=== PATIENT | female | born 1965 | race Caucasian/White ===

== ENCOUNTER 2019-04-18 15:53 | Emergency (ER) | payer OTHER, SELFPAY ==
[2019-04-18 15:55] VITALS: BP 150/77; PULSE 81; RESP 24; TEMP 36.6; O2SAT 99
[2019-04-18 16:44] LABS: Influenza A - CEPHEID Flu A NEGATIVE (NEGATIVE); Influenza B - CEPHEID Flu B NEGATIVE (NEGATIVE)
[2019-04-18] MEDS: AMOXICILLIN 250 MG CAPSULE 1000 MG PO (18:01)
--- NOTE | 2019-04-18 18:40 | ED_ITS ---
HPI - Fever <DEREK Griffith - Last Filed: 04/18/19 18:44> General Chief Complaint: Fever Stated Complaint: fever,achey,nauseous Time Seen by Provider: 04/18/19 17:28 Source: patient Mode of arrival: Ambulatory Limitations: no limitations History of Present Illness HPI Narrative: The patient is a 53-year-old female nonsmoker who denies pertinent medical history presents with a chief complaint of fever sore throat and body aches that started yesterday. 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 She has not taken anything at home to feel better. She is able to eat and drink. She complains of slight nausea, no vomiting. No abdominal pain. Does state that she had 1 episode of vomiting a few weeks ago. She denies cough, denies congestion, denies ear pain. Related Data Previous Rx's Medication Instructions Recorded amoxicillin 875 mg PO BID #20 tab 04/18/19 Review of Systems <DEREK Griffith - Last Filed: 04/18/19 18:44> Review of Systems Narrative: GENERAL: See HPI HEENT: See HPI RESPIRATORY: Denies dyspnea, cough, wheezing, hemoptysis, sputum. CARDIOVASCULAR: Denies chest pain, palpitations, orthopnea, edema, GASTROINTESTINAL: See HPI : Denies dysuria, frequency, incontinence, hematuria, urinary retention. MUSCULOSKELETAL: denies weakness, joint pain, or bony pain SKIN: Denies rash, skin lesions, or other NEUROLOGIC: Denies weakness, headache, numbness, change in speech, confusion, seizures, incoordination. PSYCHIATRIC: No concerning psychosocial issues. 12 point review of systems is negative except for those stated above Patient History <DEREK Griffith - Last Filed: 04/18/19 18:44> Social History Smoking Status: Never smoker Smoking Status: Never smoker Exam <DEREK Griffith - Last Filed: 04/18/19 18:44> Narrative Exam Narrative: GENERAL: This is a well-nourished, well-developed patient, in no acute distress wearing a mask HEAD: Atraumatic. Normocephalic. No temporal or scalp tenderness. EYES: Pupils equal round and reactive. Extraocular motions intact. No scleral icterus. No injection or drainage. ENT: Nose without bleeding, purulent drainage or septal hematoma. Throat with erythema, 1+ tonsillar hypertrophy and bilateral exudate. Uvula midline. Airway patent. Bilateral TMs pearly tobias. NECK: Trachea midline. No JVD or lymphadenopathy. Supple, nontender, no meningeal signs. CARDIOVASCULAR: Regular rate and rhythm RESPIRATORY: Clear to auscultation. Breath sounds equal bilaterally. No wheezes, rales, or rhonchi. No cough. No increased respiratory effort. No accessory muscle use. GASTROINTESTINAL: Abdomen soft, non-tender, nondistended. No hepato- splenomegaly, or palpable masses. No guarding. EXTREMITIES: No clubbing, cyanosis, or edema. No joint tenderness, effusion, or edema noted. Using all extremities equally BACK: Nontender without deformity or crepitance. No flank tenderness. NEURO: AOx3. SKIN: No rash or erythema on visible skin Initial Vital Signs Initial Vital Signs: Vital Signs Temperature 97.8 F 04/18/19 15:55 Pulse Rate 81 04/18/19 15:55 Respiratory Rate 24 04/18/19 15:55 Blood Pressure 150/77 H 04/18/19 15:55 Pulse Oximetry 99 04/18/19 15:55 <DO Komal Kruger Last Filed: 04/18/19 20:12> Initial Vital Signs Initial Vital Signs: Vital Signs Temperature 97.8 F 04/18/19 15:55 Pulse Rate 81 04/18/19 15:55 Respiratory Rate 24 04/18/19 15:55 Blood Pressure 150/77 H 04/18/19 15:55 Pulse Oximetry 99 04/18/19 15:55 Course <DEREK Griffith - Last Filed: 04/18/19 18:44> Orders Ordered: ED Orders 04/18/19 16:00 Influenza A & B (PCR) Stat Discontinued Medications Amoxicillin (Trimox) 1,000 mg PO NOW ONE Stop: 04/18/19 17:37 Last Admin: 04/18/19 18:01 Dose: 1,000 mg Documented by: JOSE Vital Signs Vital signs: Vital Signs - 8 hr 04/18/19 15:55 Temperature 97.8 F Pulse Rate 81 Respiratory Rate 24 Blood Pressure 150/77 H Pulse Oximetry 99 <Isac Pedraza DO - Last Filed: 04/18/19 20:12> Orders Ordered: ED Orders 04/18/19 16:00 Influenza A & B (PCR) Stat Discontinued Medications Amoxicillin (Trimox) 1,000 mg PO NOW ONE Stop: 04/18/19 17:37 Last Admin: 04/18/19 18:01 Dose: 1,000 mg Documented by: JOSE Vital Signs Vital signs: Vital Signs - 8 hr 04/18/19 15:55 Temperature 97.8 F Pulse Rate 81 Respiratory Rate 24 Blood Pressure 150/77 H Pulse Oximetry 99 MDM - Fever <Andreinatashia ClementeDEREK mora - Last Filed: 04/18/19 18:44> Lab Data Labs: Lab Results 04/18/19 Range/Units 16:00 Influenza A (RT-PCR) Flu a negative (NEGATIVE) Influenza B (RT-PCR) Flu b negative (NEGATIVE) Point of Care Testing Rapid Strep A Positive MDM Narrative Medical decision making narrative: The patient is a 53-year-old female who presents with a chief complaint of sore throat muscle aches and fever. She shahida ts negative for influenza, test positive for strep. Initiated treatment with amoxicillin. Work note given. Discussed at length continued [id number] measures, as well as follow-up with primary care provider coming back to the emergency department for any acute concerns. Patient has no questions or concerns upon discharge and states understanding of return precautions as well as follow-up care. <Isac Pedraza DO - Last Filed: 04/18/19 20:12> Lab Data Labs: Lab Results 04/18/19 Range/Units 16:00 Influenza A (RT-PCR) Flu a negative (NEGATIVE) Influenza B (RT-PCR) Flu b negative (NEGATIVE) Point of Care Testing Rapid Strep A Positive Discharge Plan Departure Patient Disposition: Home Clinical Impression: Strep throat Discharge Date/Time: 04/18/19 18:55 Instructions: DI for Strep Throat Activity Restrictions/Additional Instructions: As discussed, your influenza test came back negative. Your strep came back positive. I sent a prescription of amoxicillin to [facility] in [place]. Please take your antibiotics with probiotic or yogurt. We have given you your 1st dose of antibiotics in the emergency department. Please follow-up with primary care provider next few days. Please come back to emergency department for any acute concerns Prescriptions: New amoxicillin 875 mg tablet 875 mg PO BID Qty: 20 RF: 0 Referrals: Mauro Sandoval MD [Primary Care Provider] - Stand Alone Forms: Work Release Note
== END 2019-04-18 18:55 | disposition home or self-care (01) ==
PROVIDERS: Emergency Medicine; Emergency Provider Nurse Practitioner Family; Family Provider Family Medicine; PCP Family Medicine
DX: J02.0 Streptococcal pharyngitis (principal)
CPT/HCPCS: 87502; 87880; 99283

== ENCOUNTER → 2020-03-11 14:01 | Outpatient (CLI) | payer OTHER, SELFPAY ==
--- NOTE | 2020-03-11 14:04 | DI.MG.S_ITS ---
BILATERAL DIGITAL SCREENING MAMMOGRAM 3D/2D WITH CAD: 03/11/2020 CLINICAL: Routine screening. Comparison is made to exams dated: 05/27/2017 mammogram, 05/25/2018 mammogram - [facility], and 02/15/2016 mammogram - [facility]. The tissue of both breasts is heterogeneously dense. This may lower the sensitivity of mammography. Current study was also evaluated with a Computer Aided Detection (CAD) system. There is a benign cyst in the right breast. There also is a benign lymph node in the left breast. No significant masses, calcifications, or other findings are seen in either breast. IMPRESSION: BENIGN There is no mammographic evidence of malignancy. A 1 year screening mammogram is recommended. This exam was interpreted at Station ID: [id number]. NOTE: For mammograms, a report in lay terms will be sent to the patient. Approximately 15% of breast malignancies will not be visualized mammographically. In the management of a palpable breast mass, a negative mammogram must not discourage biopsy of a clinically suspicious lesion. Electronically Signed By: Hayes garcia/serena:03/13/2020 08:43:14 letter sent: Normal Exam ACR BI-RADS Category 2: Benign Finding(s) 3342F
== END ==
PROVIDERS: Family Provider Family Medicine; PCP Family Medicine; Referring Provider Family Medicine; Visit Provider Family Medicine
DX: Z12.31 Encounter for screening mammogram for malignant neoplasm of breast (principal)
CPT/HCPCS: 77063; 77067

== ENCOUNTER 2022-08-30 16:58 | Emergency (ER) | payer OTHER, SELFPAY ==
[2022-08-30] VITALS (7 sets, daily range): BP systolic 115–140; BP diastolic 55–84; PULSE 59–71; RESP 16–20; TEMP 37.1; O2SAT 96–99; BMI 29.9
[2022-08-30 17:42] LABS: Add Manual Diff / Slide Review NO; Basophils Absolute Auto 100 /uL (0-100); Basophils Percent Auto 0.8 % (0-2); Eosinophils Absolute Auto 300 /uL (0-450); Eosinophils Percent Auto 3.6 % (2-4); Hematocrit 41.2 % (36-46); Hemoglobin 14.2 g/dL (12.0-16.0); Lymphocytes Absolute Auto 2400 /uL (1100-4500); Lymphocytes Percent Auto 31.3 % (25-40); Mean Corpuscular HGB Conc 34.4 % (30-36); Mean Corpuscular Hemoglobin 30.9 PG (26-34); Mean Corpuscular Volume 89.8 fL (80-100); Monocytes Absolute Auto 700 /uL (0-900); Neutrophils Absolute Auto 4200 /uL (1500-7000); Neutrophils Percent Auto 55.3 % (50-75); Platelet Count 244 X10^3/uL (150-400); Red Blood Cell Count 4.59 X10^6/uL (4.0-5.2); Red Cell Distribution Width 12.8 % (11.6-14.8); White Blood Cell Count 7.5 X10^3/uL (4.5-11.0)
--- NOTE | 2022-08-30 18:05 | ED_ITS ---
HPI - General Adult General Chief complaint: Abdominal Pain Stated complaint: LRQ pain Time Seen by Provider: 08/30/22 17:56 Source: patient Mode of arrival: Ambulatory History of Present Illness HPI narrative: Patient is a 56-year-old female who is here for evaluation of right lower quadrant abdominal pain. Patient states that it started this afternoon which she was out walking. Earlier in the day she did have an adjustment by a chir opractor. That did not seem to cause any issues. She was out walking and had a fairly sudden onset of right lower quadrant/right adnexa pain. No diarrhea. No fevers. No vomiting. No urinary symptoms. Has not tried anything for the symptoms. She actually thought that the symptoms were improving while she was here in the ER however when she got up and walked around they came back again. Related Data Home Medications Medication Instructions Recorded Confirmed buspirone 5 mg tablet 2.5 mg PO BID PRN 07/12/20 07/12/20 Allergies Allergy/AdvReac Type Severity Reaction Status Date / Time hydrocodone [From Vicodin] AdvReac Intermediate Nausea Verified 08/30/22 17:22 Review of Systems Constitutional Constitutional: Reports system reviewed and no additional complaints, except as documented Gastrointestinal Gastrointestinal: Reports system reviewed and no additional complaints, except as documented Genitourinary Genitourinary: Reports system reviewed and no additional complaints, except as documented Integumentary/Breasts Skin/Breast: Reports system reviewed and no additional complaints, except as documented Patient History Medical History Bilateral bunions Seborrheic keratosis Vision disorder Surgical History (Updated 08/16/20 @ 20:01 by Raven Marley) Anesthesia History of eye surgery Status post lens implant Family History (Updated 08/16/20 @ 20:02 by Raven Marley) Father Cancer Hypertension Mother Mental health problem Social History Smoking Status: Never smoker second hand exposure: No alcohol intake: never substance use type: does not use Smoking Status: Never smoker alcohol intake frequency: holidays/special occasions only Substance Use Type: does not use Exam Initial Vital Signs Initial Vital Signs: Vital Signs Temperature 98.7 F 08/30/22 17:09 Pulse Rate 71 08/30/22 17:09 Respiratory Rate 20 08/30/22 17:09 Blood Pressure 137/62 08/30/22 17:09 Pulse Oximetry 96 08/30/22 17:09 Oxygen Delivery Method Room Air 08/30/22 17:09 Resp Effort & Inspection: normal respiratory effort Auscultation: clear to auscultation bilaterally Cardio Rate: regular rate Rhythm: regular rhythm GI Inspection: normal to inspection Palpation: soft, No firm, No guarding and tender (Right lower quadrant) Skin General: no rashes or lesions noted Neuro General: patient alert, patient awake, patient oriented x3 and moves all extremities Course Orders Ordered: ED Orders 08/30/22 17:16 EKG-12 Lead Stat 08/30/22 17:20 Complete Blood Count AUTO DIFF Stat Comprehensive Metabolic Panel Stat Lipase Stat 08/30/22 18:06 CT abdomen pelvis w con Stat Discontinued Medications Ondansetron HCl (Ondansetron 4 Mg Odt) 4 mg PO NOW PRN PRN Reason: Nausea And Vomiting Ondansetron HCl (Ondansetron 4 Mg/2 Ml Inj) 4 mg IV NOW PRN PRN Reason: Nausea And Vomiting Vital Signs Vital signs: Vital Signs - 8 hr 08/30/22 17:09 08/30/22 17:54 08/30/22 17:54 Temperature 98.7 F Pulse Rate 71 62 Respiratory Rate 20 Blood Pressure 137/62 140/84 Pulse Oximetry 96 98 Oxygen Delivery Method Room Air 08/30/22 18:00 08/30/22 18:01 08/30/22 18:01 Temperature Pulse Rate 60 66 Respiratory Rate 16 Blood Pressure 115/55 L Pulse Oximetry 98 98 Oxygen Delivery Method Room Air 08/30/22 18:30 08/30/22 18:30 08/30/22 18:44 Temperature Pulse Rate 63 Respiratory Rate Blood Pressure 118/64 124/76 Pulse Oximetry 98 Oxygen Delivery Method 08/30/22 18:44 08/30/22 19:00 08/30/22 19:00 Temperature Pulse Rate 65 59 L Respiratory Rate 18 Blood Pressure 128/73 Pulse Oximetry 99 97 Oxygen Delivery Method Room Air Medical Decision Making Lab Data Lab results reviewed: Yes I reviewed the patient's lab results. 08/30/22 17:20 08/30/22 17:20 Labs: Lab Results 08/30/22 08/30/22 Range/Units 17:20 17:20 WBC 7.5 (4.5-11.0) X10^3/uL RBC 4.59 (4.0-5.2) X10^6/uL Hgb 14.2 (12.0-16.0) g/dL Hct 41.2 (36-46) % MCV 89.8 (80-100) fL MCH 30.9 (26-34) PG MCHC 34.4 (30-36) % RDW 12.8 (11.6-14.8) % Plt Count 244 (150-400) X10^3/uL Neut % (Auto) 55.3 (50-75) % Lymph % (Auto) 31.3 (25-40) % Carson % (Auto) 9.0 (3-14) % Eos % (Auto) 3.6 (2-4) % Baso % (Auto) 0.8 (0-2) % Neut # (Auto) 4200 (4139-3013) /uL Lymph # (Auto) 2400 (9781-8498) /uL Carson # (Auto) 700 (0-900) /uL Eos # (Auto) 300 (0-450) /uL Baso # (Auto) 100 (0-100) /uL Sodium 139 (137-145) mmol/L Potassium 4.4 (3.4-5.1) mmol/L Chloride 107 (98-107) mmol/L Carbon Dioxide 26 (22-32) mmol/L BUN 27 H (7-17) mg/dL Creatinine 0.64 (0.52-1.04) mg/dL Estimated GFR > 60 (>60) mL/min BUN/Creatinine Ratio 42.2 H (6-22) Glucose 109 H (70-100) mg/dL Calcium 9.0 (8.4-10.2) mg/dL Total Bilirubin 0.5 (0.2-1.3) mg/dL AST 27 (14-36) IU/L ALT 13 (<35) IU/L Alkaline Phosphatase 80 (38-126) U/L Total Protein 7.6 (6.3-8.2) g/dL Albumin 4.3 (3.5-5.0) g/dL Globulin 3.3 (1.7-4.1) g/dL Albumin/Globulin Ratio 1.3 (1.0-2.8) Lipase 97 (23-300) U/L Imaging Data CT scan - abdomen/pelvis: Radiologist's Impression: PROCEDURE:? CT ABDOMEN PELVIS W CON ? INDICATIONS:? RLQ pain eval for appy ? TECHNIQUE:? After the administration of intravenous contrast, axial sections acquired from the lung bases to the pubic symphysis.? Coronal and sagittal reformats were performed.? For radiation dose reduction, the following was used:? automated exposure control, adjustment of mA and/or kV according to patient size.? ? COMPARISON:? [facility], , BREAST UNILATERAL LIMITED, 03/05/2016, 15:13. ? FINDINGS:? Image quality:? Excellent.? ? Lung bases:? Bibasilar atelectasis.? Small hiatal hernia.? Presumed right breast cyst as previously evaluated in 2017. Heart:? Heart size is normal. ? ABDOMEN: Liver:? There are a few scattered subcentimeter hepatic hypodensities which are too small to accurately characterize but likely represent cysts versus hemangiomas. Gallbladder:? Unremarkable.? ? Biliary ducts:? Unremarkable.? ? Pancreas: Homogeneous enhancement without focal lesions or pancreatic ductal dilatation.? No peripancreatic inflammation or organized fluid collections. Spleen:? No splenomegaly Adrenal Glands:? Unremarkable.? ? Kidneys and Ureters: Kidneys are symmetric in size and enhancement, and there is no obstructive uropathy.? No perinephric inflammatory changes. Ureters are normal in course and caliber.? Multiple bilateral renal hypodensities likely representing cysts. ? Stomach and Bowel:? Stomach, small bowel loops, and colon are unremarkable.? A few scant colonic diverticula without evidence for acute diverticulitis.? Normal appendix. Peritoneum:? No abnormal intraperitoneal fluid.? No free air.? ? Ventral Wall: ? No hernias.? Abdominal Nodes:? No retroperitoneal or mesenteric adenopathy by size criteria.? Vessels:? Aorta and inferior vena cava are normal in size.? ? PELVIS: Pelvic Organs:? Unremarkable.? ? Bladder:? Unremarkable.? ? Pelvic Nodes: No enlarged lymph nodes.? Miscellaneous: No hernias are seen. ? ? ? Bones:? Unremarkable.? ? Multilevel spondylosis.? No acute compression fracture. ? ? IMPRESSION:? ? 1. CT abdomen and pelvis without acute abnormalities. ? 2. Scant colonic diverticulosis without acute diverticulitis. ? 3. Normal appendix. ? 4. Scattered hepatic and renal hypodensities incompletely characterized but likely representing cysts. ? 5. Presumed right lateral breast cyst.? A similar cyst was described on comparison ultrasound dated March 05, 2016? ECG Data Attestation: I personally reviewed and interpreted this ECG as follows: Interpretation: Sinus rhythm Ventricular rate is 60 Normal axis Normal QRS Normal QTC No ST T wave changes MDM Narrative Medical decision making narrative: Patient's labs are unremarkable. She does have a benign exam. We did discuss that this potentially could be muscular in origin however given the location there was also concern about appendicitis. After this discussion we did opt to have a CT performed. Prior to the results of the CT scan the patient stated that she wanted to leave. She understands that we do not have the results of the CT scan back. She signed Against Medical Advice paperwork and was given return precautions. Discharge Plan Departure Patient Disposition: Left Against Medical Advice Clinical Impression: Abdominal pain Prescriptions: No Action buspirone 5 mg tablet 2.5 mg PO BID PRN Stand Alone Forms: Patient Portal/API, Against Medical Advice
--- NOTE | 2022-08-30 18:06 | DI.CT.S_ITS ---
PROCEDURE: CT ABDOMEN PELVIS W CON INDICATIONS: RLQ pain eval for appy TECHNIQUE: After the administration of intravenous contrast, axial sections acquired from the lung bases to the pubic symphysis. Coronal and sagittal reformats were performed. For radiation dose reduction, the following was used: automated exposure control, adjustment of mA and/or kV according to patient size. COMPARISON: [facility], , BREAST UNILATERAL LIMITED, 03/05/2016, 15:13. FINDINGS: Image quality: Excellent. Lung bases: Bibasilar atelectasis. Small hiatal hernia. Presumed right breast cyst as previously evaluated in 2017. Heart: Heart size is normal. ABDOMEN: Liver: There are a few scattered subcentimeter hepatic hypodensities which are too small to accurately characterize but likely represent cysts versus hemangiomas. Gallbladder: Unremarkable. Biliary ducts: Unremarkable. Pancreas: Homogeneous enhancement without focal lesions or pancreatic ductal dilatation. No peripancreatic inflammation or organized fluid collections. Spleen: No splenomegaly Adrenal Glands: Unremarkable. Kidneys and Ureters: Kidneys are symmetric in size and enhancement, and there is no obstructive uropathy. No perinephric inflammatory changes. Ureters are normal in course and caliber. Multiple bilateral renal hypodensities likely representing cysts. Stomach and Bowel: Stomach, small bowel loops, and colon are unremarkable. A few scant colonic diverticula without evidence for acute diverticulitis. Normal appendix. Peritoneum: No abnormal intraperitoneal fluid. No free air. Ventral Wall: No hernias. Abdominal Nodes: No retroperitoneal or mesenteric adenopathy by size criteria. Vessels: Aorta and inferior vena cava are normal in size. PELVIS: Pelvic Organs: Unremarkable. Bladder: Unremarkable. Pelvic Nodes: No enlarged lymph nodes. Miscellaneous: No hernias are seen. Bones: Unremarkable. Multilevel spondylosis. No acute compression fracture. IMPRESSION: 1. CT abdomen and pelvis without acute abnormalities. 2. Scant colonic diverticulosis without acute diverticulitis. 3. Normal appendix. 4. Scattered hepatic and renal hypodensities incompletely characterized but likely representing cysts. 5. Presumed right lateral breast cyst. A similar cyst was described on comparison ultrasound dated March 05, 2016 Dictated by: Hayes Gaming M.D. on 08/30/2022 at 19:41 Approved by: Hayes Gaming M.D. on 08/30/2022 at 19:48
[2022-08-30 18:13] LABS: Alanine Aminotransferase 13 IU/L (<35); Albumin 4.3 g/dL (3.5-5.0); Albumin Globulin Ratio 1.3 (1.0-2.8); Alkaline Phosphatase 80 U/L (38-126); Aspartate Aminotransferase 27 IU/L (14-36); BUN Creatinine Ratio 42.2 (6-22); Bilirubin Total 0.5 mg/dL (0.2-1.3); Blood Urea Nitrogen 27 mg/dL (7-17); Carbon Dioxide 26 mmol/L (22-32); Chloride 107 mmol/L (98-107); Estimated Glomerular Filt Rate > 60 mL/min (>60); Globulin 3.3 g/dL (1.7-4.1); Glucose 109 mg/dL (70-100); Lipase 97 U/L (23-300); Sodium 139 mmol/L (137-145); Total Protein 7.6 g/dL (6.3-8.2)
[2022-08-30 18:23] LABS: HEMOLYSIS 73 (0-50); Potassium 4.4 mmol/L (3.4-5.1)
== END 2022-08-30 19:26 | disposition left against medical advice (07) ==
PROVIDERS: Emergency Medicine; Emergency Provider Emergency Medicine; Family Provider Family Medicine; PCP Family Medicine
DX: R10.31 Right lower quadrant pain (principal)
CPT/HCPCS: 36415; 74177; 80053; 83690; 85025; 93005; 93010; 99284; Q9967

== ENCOUNTER 2024-05-27 10:08 | Emergency (ER) | payer OTHER, SELFPAY ==
[2024-05-27 10:15] VITALS: PULSE 71; O2SAT 98
[2024-05-27 10:16] VITALS: BP 138/68; PULSE 67; O2SAT 98
[2024-05-27 10:20] VITALS: BP 138/68; PULSE 63; RESP 14; TEMP 36.8; O2SAT 98; BMI 30.2
[2024-05-27] MEDS: KETOROLAC 30 MG/ML VIAL 15 MG IV (11:56)
[2024-05-27 12:11] LABS: Add Manual Diff / Slide Review NO; Basophils Absolute Auto 0 /uL (0-100); Basophils Percent Auto 0.8 % (0-2); Eosinophils Absolute Auto 200 /uL (0-450); Eosinophils Percent Auto 3.2 % (2-4); Hemoglobin 13.6 g/dL (12.0-16.0); Lymphocytes Absolute Auto 1700 /uL (1100-4500); Lymphocytes Percent Auto 27.5 % (25-40); Mean Corpuscular HGB Conc 33.9 % (30-36); Mean Corpuscular Hemoglobin 30.9 PG (26-34); Monocytes Absolute Auto 500 /uL (0-900); Monocytes Percent Auto 8.4 % (3-14); Neutrophils Absolute Auto 3700 /uL (1500-7000); Neutrophils Percent Auto 60.1 % (50-75); Platelet Count 261 X10^3/uL (150-400); White Blood Cell Count 6.2 X10^3/uL (4.5-11.0)
[2024-05-27 12:22] LABS: Alanine Aminotransferase 14 IU/L (<35); Albumin Globulin Ratio 1.5 (1.0-2.8); Alkaline Phosphatase 88 U/L (38-126); Aspartate Aminotransferase 23 IU/L (14-36); BUN Creatinine Ratio 17.9 (6-22); Bilirubin Total 0.7 mg/dL (0.2-1.3); Blood Urea Nitrogen 12 mg/dL (7-17); Calcium 9.1 mg/dL (8.4-10.2); Carbon Dioxide 25 mmol/L (22-32); Chloride 107 mmol/L (98-107); Estimated Glomerular Filt Rate > 60 mL/min (>60); Globulin 2.6 g/dL (1.7-4.1); Glucose 88 mg/dL (70-100); HEMOLYSIS < 15 (0-50); Lipase 57 U/L (23-300); Potassium 4.2 mmol/L (3.4-5.1); Sodium 139 mmol/L (137-145); Total Protein 6.6 g/dL (6.3-8.2)
--- NOTE | 2024-05-27 12:44 | DI.US.S_ITS ---
PROCEDURE: US PELVIC COMPLETE INDICATIONS: left pain TECHNIQUE: Real-time scanning was performed of the pelvic organs, with image documentation. Additional endovaginal scanning was necessary due to incomplete visualization of the adnexal and endometrial structures by transabdominal scanning. COMPARISON: None. FINDINGS: Uterus: Uterus is anteverted and normal in size at 6.8 x 5.2 x 3.7 cm. The myometrium is homogeneous. 1.8 x 1.6 x 1.5 cm subserosal fibroid in posterior myometrium is seen. 5 x 4 x 4 mm calcification is noted within the myometrium.The endometrium measures 4 mm combined thickness. There is no endometrial mass or fluid. Small nabothian cysts are noted in vaginal canal. Ovaries: The right ovary measures 2.2 x 1.6 x 1.4 cm, with a calculated ovarian volume of 2.6 cc. The left ovary measures 2.5 x 1.6 x 2.0 cm, with a calculated ovarian volume of 4.2 cc. The ovaries have a normal sonographic appearance. Less than 12 follicles can be seen in each ovary. Normal arterial and venous flow is seen in bilateral ovaries on color Doppler images. No adnexal masses are seen. Other: No pathologic free abdominal or pelvic fluid. IMPRESSION: 1. Single uterine fibroid as above. No endometrial mass or fluid. Nonspecific tiny calcification within myometrium. 2. Normal appearing bilateral ovaries. No evidence of ovarian torsion. We strive to produce accurate, complete, and clear reports of imaging services. To assist us in improving patient care, this report was composed using standard report templates and voice recognition software. Therefore, it may contain abnormal punctuation, insertions and/or omissions. Occasional wrong-word or sound-alike substitutions may occur. Though we review the report and make efforts to correct it, we do recommend that the report be read carefully in proper context to recognize any text inaccuracies. Dictated by: Paul Aguilera M.D. on 05/27/2024 at 13:46 Approved by: Paul Aguilera M.D. on 05/27/2024 at 13:48
--- NOTE | 2024-05-27 14:00 | ED.ABDPAIN ---
HPI - Abdominal Pain General Chief Complaint: Abdominal Pain Stated Complaint: per patient , may Left ovarian cyst hard to walk Time Seen by Provider: 05/27/24 11:30 Source: patient Mode of arrival: Ambulatory History of Present Illness HPI narrative: Patient is a 58-year-old female without significant past medical history presenting today with ongoing right lower quadrant pain. She thought it might be an ovarian cyst but has no history of ovarian cyst. It woke up this morning around 5:00 a.m. she started having some mild back pain little bit of nausea. She was given Toradol prior to my evaluation reports that that has helped significantly. Related Data Home Medications Medication Instructions Recorded Confirmed buspirone 5 mg tablet 2.5 mg PO BID PRN 07/12/20 07/12/20 Allergies Allergy/AdvReac Type Severity Reaction Status Date / Time hydrocodone [From Vicodin] AdvReac Intermediate Nausea Verified 05/27/24 10:24 Patient History Medical History Bilateral bunions Seborrheic keratosis Vision disorder Surgical History (Updated 08/16/20 @ 20:01 by Raven Marley) Anesthesia Status post lens implant History of eye surgery Family History (Updated 08/16/20 @ 20:02 by Raven Marley) Father Cancer Hypertension Mother Mental health problem Social History Smoking Status: Unknown if ever smoked second hand exposure: No alcohol intake: never substance use type: does not use Smoking Status: Unknown if ever smoked alcohol intake frequency: holidays/special occasions only Exam Initial Vital Signs Initial Vital Signs: Vital Signs Pulse Rate 71 05/27/24 10:15 Pulse Oximetry 98 05/27/24 10:15 GENERAL: Alert 50-year-old female appears well nontoxic and in no acute distress. HEENT: Head atraumatic,EOMI, pupils reactive, face symmetric, moist mucous membranes CARDIOVASCULAR: Regular rate and rhythm without murmurs, rubs or gallops. RESPIRATORY: Breath sounds equal bilaterally, no wheezes rales or rhonchi. ABDOMEN: Soft, tender right lower quadrant no guarding no real : No CVA tenderness EXTREMITIES: Normal range of motion, no clubbing or edema. Neurovascularly intact NEUROLOGICAL: Alert and oriented x4.Normal gait and speech. Cranial nerves II through XII grossly intact. SKIN: Warm, dry, no laceration, no petechiae, no rashes or lesions. Course Orders Ordered: ED Orders 05/27/24 12:04 CBC Auto Diff [Complete Blood Count AUTO DIFF] Stat CMP [Comprehensive Metabolic Panel] Stat Lipase Stat 05/27/24 12:44 US pelvic complete Stat 05/27/24 14:00 CT abdomen pelvis w con Stat Discontinued Medications Ketorolac Tromethamine (Ketorolac 30 Mg/Ml Vial) 15 mg IV NOW ONE Stop: 05/27/24 11:31 Last Admin: 05/27/24 11:56 Dose: 15 mg Documented By: CHRISTINA Vital Signs Vital signs: Vital Signs - 8 hr 05/27/24 10:15 05/27/24 10:16 05/27/24 10:16 Temperature Pulse Rate 71 67 Respiratory Rate Blood Pressure 138/68 Pulse Oximetry 98 98 Oxygen Delivery Method 05/27/24 10:20 05/27/24 14:24 Temperature 98.3 F Pulse Rate 63 61 Respiratory Rate 14 16 Blood Pressure 138/68 130/65 Pulse Oximetry 98 98 Oxygen Delivery Method Room Air Room Air MDM - Abdominal Pain Lab Data 05/27/24 12:04 05/27/24 12:04 Labs: Lab Results 05/27/24 Range/Units 12:04 WBC 6.2 (4.5-11.0) X10^3/uL RBC 4.40 (4.0-5.2) X10^6/uL Hgb 13.6 (12.0-16.0) g/dL Hct 40.0 (36-46) % MCV 91.0 (80-100) fL MCH 30.9 (26-34) PG MCHC 33.9 (30-36) % RDW 13.0 (11.6-14.8) % Plt Count 261 (150-400) X10^3/uL Neut % (Auto) 60.1 (50-75) % Lymph % (Auto) 27.5 (25-40) % [place] % (Auto) 8.4 (3-14) % Eos % (Auto) 3.2 (2-4) % Baso % (Auto) 0.8 (0-2) % Neut # (Auto) 3700 (7636-8876) /uL Lymph # (Auto) 1700 (6991-1868) /uL [place] # (Auto) 500 (0-900) /uL Eos # (Auto) 200 (0-450) /uL Baso # (Auto) 0 (0-100) /uL Sodium 139 (137-145) mmol/L Potassium 4.2 (3.4-5.1) mmol/L Chloride 107 (98-107) mmol/L Carbon Dioxide 25 (22-32) mmol/L BUN 12 (7-17) mg/dL Creatinine 0.67 (0.52-1.04) mg/dL Estimated GFR > 60 (>60) mL/min BUN/Creatinine Ratio 17.9 (6-22) Glucose 88 (70-100) mg/dL Calcium 9.1 (8.4-10.2) mg/dL Total Bilirubin 0.7 (0.2-1.3) mg/dL AST 23 (14-36) IU/L ALT 14 (<35) IU/L Alkaline Phosphatase 88 (38-126) U/L Total Protein 6.6 (6.3-8.2) g/dL Albumin 4.0 (3.5-5.0) g/dL Globulin 2.6 (1.7-4.1) g/dL Albumin/Globulin Ratio 1.5 (1.0-2.8) Lipase 57 (23-300) U/L Point of care testing: Urine Dip Bedside Urine Glucose Negative Bedside Urine Bilirubin - Negative Bedside Urine Ketone - Negative Urine Specific [place] 1.010 Bedside Urine Occult Blood - Negative Bedside Urine pH 7.0 Bedside Urine Protein - Negative Bedside Urine Urobilinogen - Negative Bedside Urine Nitrite - Negative Bedside Urine Leukocytes - Negative Esterase Imaging Data US - SHINGLE TRIMMER: Radiologist's Impression: PROCEDURE: US PELVIC COMPLETE INDICATIONS: left pain TECHNIQUE: Real-time scanning was performed of the pelvic organs, with image documentation. Additional endovaginal scanning was necessary due to incomplete visualization of the adnexal and endometrial structures by transabdominal scanning. COMPARISON: None. FINDINGS: Uterus: Uterus is anteverted and normal in size at 6.8 x 5.2 x 3.7 cm. The myometrium is homogeneous. 1.8 x 1.6 x 1.5 cm subserosal fibroid in posterior myometrium is seen. 5 x 4 x 4 mm calcification is noted within the myometrium.The endometrium measures 4 mm combined thickness. There is no endometrial mass or fluid. Small nabothian cysts are noted in vaginal canal. Ovaries: The right ovary measures 2.2 x 1.6 x 1.4 cm, with a calculated ovarian volume of 2.6 cc. The left ovary measures 2.5 x 1.6 x 2.0 cm, with a calculated ovarian volume of 4.2 cc. The ovaries have a normal sonographic appearance. Less than 12 follicles can be seen in each ovary. Normal arterial and venous flow is seen in bilateral ovaries on color Doppler images. No adnexal masses are seen. Other: No pathologic free abdominal or pelvic fluid. IMPRESSION: 1. Single uterine fibroid as above. No endometrial mass or fluid. Nonspecific tiny calcification within myometrium. 2. Normal appearing bilateral ovaries. No evidence of ovarian torsion. We strive to produce accurate, complete, and clear reports of imaging services. To assist us in improving patient care, this report was composed using standard report templates and voice recognition software. Therefore, it may contain abnormal punctuation, insertions and/or omissions. Occasional wrong-word or sound-alike substitutions may occur. Though we review the report and make efforts to correct it, we do recommend that the report be read carefully in proper context to recognize any text inaccuracies. Dictated by: Paul Aguilera M.D. on 05/27/2024 at 13:46 CT scan - abdomen/pelvis: Radiologist's Impression: PROCEDURE: CT ABDOMEN PELVIS W CON INDICATIONS: right lower quad TECHNIQUE: After the administration of intravenous contrast, axial sections acquired from the lung bases to the pubic symphysis. Coronal and sagittal reformats were performed. For radiation dose reduction, the following was used: automated exposure control, adjustment of mA and/or kV according to patient size. COMPARISON: [facility], CT, CT ABDOMEN PELVIS W CON, 08/30/2022, 18:44. FINDINGS: Image quality: Diagnostic. Lower Chest: No significant findings. ABDOMEN: Liver: No solid mass. Numerous well-circumscribed hypodensities are again seen scattered in right and left hepatic lobes likely represent hepatic cysts. Gallbladder: No radiopaque gallstones or wall thickening. Biliary ducts: No biliary dilation. Pancreas: No ductal dilation. Spleen: Size is within normal limits. Adrenal Glands: No adrenal nodules. Kidneys and Ureters: No hydronephrosis. No solid mass. No complex renal cystic lesion which requires follow up. Stomach and Bowel: There is no bowel obstruction. [id number] fecal stasis in the colon is seen. Appendix is visualized in right lower quadrant and is within normal limits. No abscess collection. Peritoneum: No abnormal intraperitoneal fluid. No free air. Ventral Wall: No significant ventral hernia. Abdominal Nodes: No retroperitoneal or mesenteric adenopathy by size criteria. Vessels: Aorta and inferior vena cava are normal in size. PELVIS: Pelvic Organs: Unremarkable. Bladder: No bladder wall thickening, accounting for underdistention. Pelvic Nodes: No enlarged lymph nodes. Miscellaneous: No inguinal hernias are seen. Bones: No aggressive osseous abnormality. IMPRESSION: 1. Normal appendix. No bowel obstruction or abnormal bowel wall thickening. No free fluid or free air. 2. No obstructing renal stones or hydronephrosis. 3. Likely scattered hepatic cyst unchanged from prior study. Dictated by: Paul Aguilera M.D. on 05/27/2024 at 14:39 Approved by: Paul Aguilera M.D. on 05/27/2024 at 14:44 [facility] Narrative Medical decision making narrative: Patient is a healthy 58-year-old female presents today with sudden onset right lower quadrant pain. She was having some mild right flank pain as well a little bit of nausea. On exam she was tender in her right lower quadrant. Work has been reviewed overall reassuring. She was no leukocytosis no LEANDRO no electrolyte abnormality. Urinalysis does not show evidence of UTI or hematuria. Ultrasound showed a uterine fibroid but no evidence of ovarian torsion or right ovarian cyst CT no evidence of appendicitis or nephrolithiasis diverticulitis Patient given Toradol, pain much improved. At this time overall workup in the emergency department is negative unclear source of abdominal pain. She appears well nontoxic with improved pain. Differential diagnosis includes nephrolithiasis appendicitis diverticulitis bowel obstruction ovarian cyst ovarian torsion cholelithiasis cholecystitis Discharge Plan Departure Patient Disposition: Home Clinical Impression: Abdominal pain, Fibroid, uterine Instructions: DI for Abdominal Pain-Adult Activity Restrictions/Additional Instructions: *You have been diagnosed with abdominal pain *What to do: At this time no cause of abdominal pain found. You are found to have a uterine fibroid You can follow up with pneumatic jack operator if this becomes a problem *Continue to take medications as directed Tylenol Motrin as needed for pain *Follow up with your primary care provider in 2-3 days or call [phone] *Return to ER if you should have increasing pain persistent vomiting not tolerating fluids or any new, worsening or concerning symptoms Prescriptions: No Action buspirone 5 mg tablet 2.5 mg PO BID PRN Referrals: Le Ashley [Primary Care Provider] - Stand Alone Forms: Patient Portal/API/Survey
[2024-05-27 14:24] VITALS: BP 130/65; PULSE 61; RESP 16; O2SAT 98
== END 2024-05-27 15:24 | disposition home or self-care (01) ==
PROVIDERS: Emergency Provider Emergency Medicine; Family Provider Family Medicine; PCP Family Medicine
DX: R10.31 Right lower quadrant pain (principal); M54.6 Pain in thoracic spine; R11.0 Nausea; D25.9 Leiomyoma of uterus, unspecified
CPT/HCPCS: 36415; 74177; 76830; 76856; 80053; 81003; 83690; 85025; 93975; 96374; 99284; J1885; Q9967